=== PATIENT | male | born 1990 | race Caucasian/White ===

== ENCOUNTER 2017-04-01 14:22 | Emergency (ER) | payer BC ==
[2017-04-01 15:09] VITALS: BP 133/87
--- NOTE | 2017-04-01 16:29 | UC ---
Veena Barry Erika, scribed for Gem Vázquez MD on 04/01/17 at 1547 . Skin Complaint HPI - HPI Summary HPI Summary: Patient is a 26-year-old male presenting to [facility] with a CC of constant infection of the umbilicus for about 1 month. He reports that he saw his PCP and was first given a ketoconazole topical cream which did not alleviate the symptoms. He then was given a 10 day course of doxycycline which ended yesterday , and also did not alleviate the symptoms. Patient reports erythema and drainage of the area. He denies sanguinous drainage. He notes intermittent discomfort of the area. Pt denies nausea, vomiting, and diarrhea. Patient reports he has had similar symptoms in the past, but never this severe. Pt also notices tissue in the umbilicus that he has not noted before. Pt does also note some cold-like symptoms, including nasal discharge but no sore throat. Pt denies daily medications. Hx right knee surgery. FHx CAD. - History of Current Complaint Chief Complaint: UCSkin Time Seen by Provider: 04/01/17 15:30 Stated Complaint: BELLY BUTTON INFECTION Hx Obtained From: Patient Onset/Duration: Gradual Onset, Lasting Weeks, Still Present Timing: Constant Onset Severity: Moderate Current Severity: Moderate Pain Intensity: 0 Pain Scale Used: 0-10 Numeric Location: Other - umbilicus Character: Redness Aggravating: Nothing Alleviating: Nothing Associated Signs & Symptoms: Positive: Drainage. Negative: Nausea, Vomiting - Allergy/Home Medications Allergies/Adverse Reactions: Allergies Allergy/AdvReac Type Severity Reaction Status Date / Time Cefaclor [[facility]] Allergy Severe Rash Verified 06/09/16 20:19 Review of Systems Constitutional: Negative Skin: Other - redness and drainage from umbilicus with intermittent pain Eyes: Negative ENT: Nasal Discharge Respiratory: Negative Cardiovascular: Negative Gastrointestinal: Negative Genitourinary: Negative Motor: Negative Neurovascular: Negative Musculoskeletal: Negative Neurological: Negative Psychological: Negative All Other Systems Reviewed And Are Negative: Yes PMH/Surg Hx/FS Hx/Imm Hx Previously Healthy: Yes Endocrine History Of: Denies: Diabetes, Thyroid Disease Cardiovascular History Of: Denies: Cardiac Disorders, Hypertension Respiratory History Of: Denies: COPD, Asthma GI/ History Of: Denies: Ulcer - Surgical History Surgical History: Yes Surgery Procedure, Year, and Place: 2 rt knee surgeries, wisdom teeth extraction - Family History Known Family History: Positive: Cardiac Disease - [place], Other - Breast CA, stroke - Social History Occupation: Employed Full-time Alcohol Use: Occasionally Substance Use Type: None Smoking Status (MU): Never Smoked Tobacco Physical Exam Triage Information Reviewed: Yes Appearance: Well-Appearing, No Pain Distress, Well-Nourished Vital Signs: Initial Vital Signs Temp 98.5 F 04/01/17 15:05 Pulse 75 04/01/17 15:05 Resp 18 04/01/17 15:05 BP 133/87 04/01/17 15:05 Pulse Ox 99 04/01/17 15:05 Vital Signs Reviewed: Yes Eyes: Positive: Conjunctiva Clear, Other: - EOMI ENT: Positive: Normal ENT inspection, Pharynx normal, TMs normal Neck: Positive: Supple, Nontender, No Lymphadenopathy Respiratory: Positive: Lungs clear, Normal breath sounds, No respiratory distress Cardiovascular: Positive: RRR, No Murmur, Pulses Normal, Brisk Capillary Refill Abdomen Description: Positive: Nontender, No Organomegaly, Soft, Hepatomegaly, Other: - No umbilical hernia. Negative: Distended, Guarding, Hernia @, McBurney 's Point Tenderness, Peritoneal Signs, Pulsatile Mass, Splenomegaly Bowel Sounds: Positive: Present Musculoskeletal: Positive: Strength Intact, ROM Intact Neurological: Positive: Alert, Muscle Tone Normal Psychological Exam: Normal Skin Exam: Other - Purulent drainage from the umbilicus. Granulation tissue in the umbilicus, no hernia Course/Dx - Course Course Of Treatment: will treat with Augmentin at this time as staph and strep are most common pathogens per uptodate. Pt has no hx MRSA. May need clindamycin or flagyl added or substituted if anaerobes grow on wound culture that has been sent. - Differential Diagnoses - Skin Complaint Differential Diagnoses: Cellulitis, Contact Dermatitis, Tinea - Diagnoses Provider Diagnoses: 1. omphalitis. 2. elevated blood pressure without diagnosis of HTN Discharge - Discharge Plan Condition: Stable Disposition: HOME Prescriptions: Amoxicillin/Clavulanate TAB* [Augmentin TAB 875*] 875 mg PO BID #20 tab Patient Education Materials: Cellulitis (ED) Referrals: Arpit Betancourt MD [Medical Doctor] - If Needed Marcos Swenson MD [Primary Care Provider] - 3 Days Additional Instructions: You have an infection of your umbilicus, which is called omphalitis. We have taken a culture of the drainage which will be resulted in a few days. We will contact you if you need a change in therapy based on these results. We have also given you a referral to a surgeon, Dr. Betancourt, because if the drainage continues, you may need a surgeon to investigate further. Return to urgent care or see Dr. Swenson if you have any new or worsening symptoms. Your blood pressure was elevated today at 133/87 today. Normal is 120/70. Please have this rechecked within a month. The documentation as recorded by the Veena srivastava Erika accurately reflects the service I personally performed and the decisions made by me, Gem Vázquez MD.
== END 2017-04-01 16:27 | disposition home or self-care (01) ==
LOC: UCEAST 14:22
DX: L08.82 Omphalitis not of newborn (principal); R03.0 Elevated blood-pressure reading, without diagnosis of hypertension
CPT/HCPCS: 87070; 87205; 87640; 87641; 99212; G0463

== ENCOUNTER 2017-07-16 01:14 | Emergency (ER) | payer BC ==
[2017-07-16] MEDS ORDERED: NS 0.9% 1000 ML* 1,000 ML IV ONE (01:33)
[2017-07-16] MEDS ORDERED: Morphine INJ* 4 MG/ML 1 ML SYRINGE IV ONE (02:15)
[2017-07-16] MEDS ORDERED: Ondansetron INJ* 2 MG/ML VIAL IV ONE (02:16)
[2017-07-16 02:31] LABS: Urine Bilirubin Negative (Negative); Urine Glucose Negative (Negative); Urine Nitrite Negative (Negative)
[2017-07-16 02:37] LABS: Hematocrit 45 % (42-52); Mean Corpuscular HGB Conc 33 g/dl (31-36); Mean Corpuscular Hemoglobin 29 pg (27-31); Mean Corpuscular Volume 87 fL (80-94); Mean Platelet Volume 8 um3 (7.4-10.4); Red Blood Count 5.21 10^6/ul (4.0-5.4); Red Cell Distribution Width 14 % (10.5-15); White Blood Count 9.5 10^3/ul (3.5-10.8)
[2017-07-16 02:41] LABS: ALT 14 U/L (7-52); AST 11 U/L (13-39); Albumin 4.5 g/dL (3.2-5.2); Alkaline Phosphatase 46 U/L (34-104); Anion Gap 6 mmol/L (2-11); BUN/Creatinine Ratio 18.7 (8-20); Blood Urea Nitrogen 17 mg/dL (6-24); C Reactive Protein < 1.00 mg/L (< 5.00); CO2 Carbon Dioxide 28 mmol/L (22-32); Calcium 9.3 mg/dL (8.6-10.3); Chloride 104 mmol/L (101-111); EGFR African American 129.5 (>60); EGFR Non-African American 100.7 (>60); Globulin 2.7 g/dL (2-4); Glucose 105 mg/dL (70-100); Lipase 48 U/L (11.0-82.0); Potassium 3.8 mmol/L (3.5-5.0); Sodium 138 mmol/L (133-145); Total Protein 7.2 g/dL (6.4-8.9)
[2017-07-16] MEDS ORDERED: Iohexol 300* (CONTRAST) 10 ML SDV IV ONE (03:37)
[2017-07-16] MEDS ORDERED: oxyCODONE/Acetamin 5/325 MG* TAB PO ONE (06:02)
[2017-07-16 06:32] VITALS: BP 122/67
--- NOTE | 2017-07-16 06:39 | ED ---
Alejandro Barry SooYoung, scribed for Hector Peterson MD on 07/16/17 at 0211 . Abdominal Pain/Male - HPI Summary HPI Summary: A 26 y/o M presents to ED with c/o umbilical abd pain onset approx noon yesterday, 07/16/17. Pain described as dull at first, then gradually worsening, and becoming sharp. Associated sx: fever, nausea. Denies v/d, urinary symptoms, melena. Aggravating factors: car ride, walking. Alleviating: sitting, leaning forward. He's eaten, it didn't make the pain worse. PMHx: infections at umbilicus. Pt states this pain feels different. No abd PSHx. Neg FHx: Crohn's. - History of Current Complaint Chief Complaint: EDAbdPain Stated Complaint: ABD PAIN Time Seen by Provider: 07/16/17 02:00 Hx Obtained From: Patient, Family/Financial Institution Manager Onset/Duration: Gradual Onset, Lasting Hours, Still Present Timing: Constant Severity Currently: Moderate Pain Intensity: 7 Pain Scale Used: 0-10 Numeric Location: Umbilical Character: Sharp, Dull Aggravating Factor(s): Other: - ambulating, car ride Alleviating Factor(s): Position Associated Signs And Symptoms: Positive: Fever, Nausea. Negative: Blood in Stool, Urinary Symptoms, Vomiting, Diarrhea - Allergies/Home Medications Allergies/Adverse Reactions: Allergies Allergy/AdvReac Type Severity Reaction Status Date / Time Cefaclor [From [facility]] Allergy Severe Rash Verified 06/09/16 20:19 PMH/Surg Hx/FS Hx/Imm Hx Previously Healthy: Yes Endocrine/Hematology History: Denies: Hx Diabetes, Hx Thyroid Disease Cardiovascular History: Denies: Hx Hypertension Respiratory History: Denies: Hx Asthma, Hx Chronic Obstructive Pulmonary Disease (COPD) GI History: Denies: Hx Ulcer - Surgical History Surgery Procedure, Year, and Place: 2 rt knee surgeries, wisdom teeth extraction - Immunization History Date of Tetanus Vaccine: unk Date of Influenza Vaccine: none Infectious Disease History: No Infectious Disease History: Denies: Hx Hepatitis, Hx Human Immunodeficiency Virus (HIV), Traveled Outside the [place] in Last 30 Days - Family History Known Family History: Positive: Unknown, Cardiac Disease - [place], Other - Breast CA , stroke - Social History Occupation: Employed Full-time Lives: With Family Alcohol Use: Occasionally Hx Substance Use: No Substance Use Type: Reports: None Hx Tobacco Use: No Smoking Status (MU): Never Smoked Tobacco Review of Systems Negative: Fever Positive: Abdominal Pain, Nausea, Other - neg: melena. Negative: Vomiting, Diarrhea Negative: dysuria, hematuria All Other Systems Reviewed And Are Negative: Yes Physical Exam - Summary Physical Exam Summary: The patient is well-nourished in no acute distress and in no acute pain. The skin is warm and dry and skin color reflects adequate perfusion. HEENT: The head is normocephalic and atraumatic. The pupils are equal and reactive. The conjunctivae are clear and without drainage. Nares are patent and without drainage. Mouth reveals moist mucous membranes and the throat is without erythema and exudate. The external ears are intact. The ear canals are patent and without drainage. The tympanic membranes are intact. Neck is supple with full range of motion and non-tender. There are no carotid bruits. There is no neck vein distension. Respiratory: Chest is non-tender. Lungs are clear to auscultation and breath sounds are symmetrical and equal. Cardiovascular: Hear is regular rate and rhythm. There is no murmur or rub auscultated. There is no peripheral edema and pulses are symmetrical and equal. Abdomen: The abdomen is soft. No CVA tenderness. Tenderness to percussion of LLQ. Tenderness to R-side of umbilicus. Pain with flexion of L foot. No true McBurney's point. There are normal bowel sounds heard in all four quadrants and there is no organomegaly palpated. Musculoskeletal: There is no back pain noted. Extremities are non-tender with full range of motion. There is good capillary refill. There is no peripheral edema or calf tenderness elicited. Neurological: Patient is alert and oriented to person, place and time. The patient has symmetrical motor strength in all four extremities. Cranial nerves are grossly intact. Deep tendon reflexes are symmetrical and equal in all four extremities. Psychiatric: The patient has an appropriate affect and does not exhibit any anxiety or depression. Triage Information Reviewed: Yes Vital Signs On Initial Exam: Initial Vitals Temp Pulse Resp BP Pulse Ox 98.8 F 53 17 124/79 100 07/16/17 01:07/16/17 01:07/16/17 01:07/16/17 01:17 01:17 Vital Signs Reviewed: Yes - Lea Coma Scale Coma Scale Total: 15 Diagnostics - Vital Signs Vital Signs Temp Pulse Resp BP Pulse Ox 07/16/17 01:17 98.8 F 53 17 124/79 100 - Laboratory Lab Results: Lab Results 07/16/17 07/16/17 07/16/17 Range/Units 02:05 02:05 02:05 WBC 9.5 (3.5-10.8) 10^3/ul RBC 5.21 (4.0-5.4) 10^6/ul Hgb 15.0 (14.0-18.0) g/dl Hct 45 (42-52) % MCV 87 (80-94) fL MCH 29 (27-31) pg MCHC 33 (31-36) g/dl RDW 14 (10.5-15) % Plt Count 283 (150-450) 10^3/ul MPV 8 (7.4-10.4) um3 Neut % (Auto) 72.6 (38-83) % Lymph % (Auto) 20.8 L (25-47) % [place] % (Auto) 5.0 (1-9) % Eos % (Auto) 1.2 (0-6) % Baso % (Auto) 0.4 (0-2) % Absolute Neuts (auto) 6.9 (1.5-7.7) 10^3/ul Absolute Lymphs (auto) 2.0 (1.0-4.8) 10^3/ul Absolute Monos (auto) 0.5 (0-0.8) 10^3/ul Absolute Eos (auto) 0.1 (0-0.6) 10^3/ul Absolute Basos (auto) 0 (0-0.2) 10^3/ul Absolute Nucleated RBC 0.01 10^3/ul Nucleated RBC % 0.1 Sodium 138 (133-145) mmol/L Potassium 3.8 (3.5-5.0) mmol/L Chloride 104 (101-111) mmol/L Carbon Dioxide 28 (22-32) mmol/L Anion Gap 6 (2-11) mmol/L BUN 17 (6-24) mg/dL Creatinine 0.91 (0.67-1.17) mg/dL Est GFR ( Amer) 129.5 (>60) Est GFR (Non-Af Amer) 100.7 (>60) BUN/Creatinine Ratio 18.7 (8-20) Glucose 105 H (70-100) mg/dL Lactic Acid (0.5-2.0) mmol/L Calcium 9.3 (8.6-10.3) mg/dL Total Bilirubin 0.40 (0.2-1.0) mg/dL AST 11 L (13-39) U/L ALT 14 (7-52) U/L Alkaline Phosphatase 46 (34-104) U/L C-Reactive Protein < 1.00 (< 5.00) mg/L Total Protein 7.2 (6.4-8.9) g/dL Albumin 4.5 (3.2-5.2) g/dL Globulin 2.7 (2-4) g/dL Albumin/Globulin Ratio 1.7 (1-3) Lipase 48 (11.0-82.0) U/L Urine Color Yellow Urine Appearance Clear Urine pH 5.0 (5-9) Ur Specific [place] 1.028 (1.010-1.030) Urine Protein Negative (Negative) Urine Ketones Negative (Negative) Urine Blood Negative (Negative) Urine Nitrate Negative (Negative) Urine Bilirubin Negative (Negative) Urine Urobilinogen Negative (Negative) Ur Leukocyte Esterase Negative (Negative) Urine Glucose Negative (Negative) 07/16/17 Range/Units 02:05 WBC (3.5-10.8) 10^3/ul RBC (4.0-5.4) 10^6/ul Hgb (14.0-18.0) g/dl Hct (42-52) % MCV (80-94) fL MCH (27-31) pg MCHC (31-36) g/dl RDW (10.5-15) % Plt Count (150-450) 10^3/ul MPV (7.4-10.4) um3 Neut % (Auto) (38-83) % Lymph % (Auto) (25-47) % [place] % (Auto) (1-9) % Eos % (Auto) (0-6) % Baso % (Auto) (0-2) % Absolute Neuts (auto) (1.5-7.7) 10^3/ul Absolute Lymphs (auto) (1.0-4.8) 10^3/ul Absolute Monos (auto) (0-0.8) 10^3/ul Absolute Eos (auto) (0-0.6) 10^3/ul Absolute Basos (auto) (0-0.2) 10^3/ul Absolute Nucleated RBC 10^3/ul Nucleated RBC % Sodium (133-145) mmol/L Potassium (3.5-5.0) mmol/L Chloride (101-111) mmol/L Carbon Dioxide (22-32) mmol/L Anion Gap (2-11) mmol/L BUN (6-24) mg/dL Creatinine (0.67-1.17) mg/dL Est GFR ( Amer) (>60) Est GFR (Non-Af Amer) (>60) BUN/Creatinine Ratio (8-20) Glucose (70-100) mg/dL Lactic Acid 0.7 (0.5-2.0) mmol/L Calcium (8.6-10.3) mg/dL Total Bilirubin (0.2-1.0) mg/dL AST (13-39) U/L ALT (7-52) U/L Alkaline Phosphatase (34-104) U/L C-Reactive Protein (< 5.00) mg/L Total Protein (6.4-8.9) g/dL Albumin (3.2-5.2) g/dL Globulin (2-4) g/dL Albumin/Globulin Ratio (1-3) Lipase (11.0-82.0) U/L Urine Color Urine Appearance Urine pH (5-9) Ur Specific [place] (1.010-1.030) Urine Protein (Negative) Urine Ketones (Negative) Urine Blood (Negative) Urine Nitrate (Negative) Urine Bilirubin (Negative) Urine Urobilinogen (Negative) Ur Leukocyte Esterase (Negative) Urine Glucose (Negative) Result Diagrams: 07/16/17 02:05 07/16/17 02:05 Lab Statement: Any lab studies that have been ordered have been reviewed, and results considered in the medical decision making process. - CT ABD/PEL CT CT Interpretation: No Acute Changes - IMPRESSION: Normal appearing appendix. No acute findings. CT Interpretation Completed By: Radiologist Re-Evaluation - Re-Evaluation 1 Re-Evaluation Time: 05:58 Change: Improved Comment: Discussing results with pt and family. Pt voiced understanding. Abdominal Pain Fem Course/Dx - Course Course Of Treatment: Pt is a 26 y/o M presenting with umbilical abd pain onset approx noon on 07/16/17. Pain described as dull, then gradually worsening, and becoming sharp. Associated sx: fever, nausea. Denies v/d, urinary symptoms, melena. Eating doesn't make the pain worse. PMHx: infections at umbilicus. Pt states this pain feels different. No abd PSHx. Neg FHx: Crohn's. Pt given fluids, morphine, dilauded in ED. Bloodwork results are without significant abnormalities. UA results are nml. ABD/PEL CT is negative for appy, no acute findings. Will D/C pt with Percocet and to f/u with PCP. - Diagnoses Differential Diagnosis/HQI/PQRI: Appendicitis, Bowel Obstruction, Constipation, Pancreatitis, Ureteral Stone, Urinary Tract Infection Provider Diagnoses: Abdominal pain Discharge - Discharge Plan Condition: Stable Disposition: HOME Patient Education Materials: Abdominal Pain (ED) Referrals: Marcos Swenson MD [Primary Care Provider] - 2 Days Additional Instructions: Follow up with your Primary Care Provider in the next 2 days. Please return to the ED if you experience new or worsening symptoms. The documentation as recorded by the Alejandro srivastava SooYoung accurately reflects the service I personally performed and the decisions made by me, Hector Peterson MD.
--- NOTE | 2017-07-16 07:37 | RAD ---
INDICATION: Periumbilical pain. Evaluate for acute appendicitis COMPARISON: CT September 02, 2013 TECHNIQUE: Axial source images were obtained from the hemidiaphragms to the symphysis pubis following administration of oral and intravenous contrast. 103 mL Omnipaque 300 was utilized. Coronal and sagittal reconstructed images were acquired. Lung bases: The lung bases are clear. Liver: The liver is normal in size. There are no masses. There is no ductal dilatation. Gallbladder: There are no calcified gallstones. There is no evidence of wall thickening or pericholecystic fluid. Spleen: The spleen is normal in size. There are no masses. Pancreas: There is no focal pancreatic mass or ductal dilatation. Adrenal glands: There is no evidence of adrenal mass. Kidneys: The kidneys are normal in size and position. There are prompt nephrograms and there is prompt excretion bilaterally. There are no renal parenchymal masses. There is no evidence of nephrolithiasis. Adenopathy: There is no evidence of adenopathy by size criteria. Fluid collections: There are no free or localized fluid collections. Vessels:There are no significant atherosclerotic changes involving the aorta. There is no focal aneurysm. The iliac vessels are normal in caliber. The IVC appears normal. GI tract: There are no acute CT bowel findings. There is no obstruction. The stomach and small bowel appear normal. The lower GI tract is remarkable for moderate stool in the right colon. The cecum, ileocecal valve, and terminal ileum appear normal. There is mildly limited evaluation appendix but the appendix appears normal. Pelvic organs: The prostate and seminal vesicles appear normal Bladder: There are no bladder masses. Abdominal and pelvic soft tissues: The extraperitoneal abdominal and pelvic soft tissues appear normal.. Osseous structures: There are no acute osseous findings. Other: None IMPRESSION: MODERATE STOOL RIGHT COLON. NO MASS OR INFLAMMATORY CHANGES. NORMAL APPENDIX.
== END 2017-07-16 06:31 | disposition home or self-care (01) ==
LOC: ED 01:14
DX: R10.9 Unspecified abdominal pain (principal); R50.9 Fever, unspecified; R11.0 Nausea
CPT/HCPCS: 36415; 74177; 80053; 81003; 83605; 83690; 85025; 86140; 96374; 96375; 99283; A9270-GY; J2270; J2405; Q9967